=== PATIENT | female | born 1980 | race Caucasian/White ===

== ENCOUNTER 2023-06-18 13:57 | Outpatient (OUT) | payer OTHER, SELFPAY ==
--- NOTE | 2023-06-18 14:02 | MM_ITS ---
Patient Name: MARTIN ENRIQUE MR#: [id number] : 1980 Exam Date: 06/18/2023 Ordering Doctor: Non-Staff Physician RADIOLOGY REPORT PROCEDURE: MM TOMOSYNTHESIS SCREENING BI COMPARISON: MG MAMM AUGUSTO SCRN W CAD DIG, 12/16/2018. INDICATIONS: Screening Calculator Name NCI Breast Cancer Risk Assessment Tool 5 Year Breast Cancer Risk 0.50% Lifetime Breast Cancer Risk 6.50% Personal Breast Cancer No Personal Ovarian Cancer No Treatments None Family Cancers None LOCATION: [facility] BREAST COMPOSITION: Scattered areas fibroglandular density. FINDINGS: DIAGNOSTIC CATEGORY 1--NEGATIVE. NO CHANGE FROM COMPARISON ASSESSMENT. Scattered benign-appearing calcifications are present. Scattered benign-appearing lymph nodes are present. RIGHT BREAST: No significant suspicious finding. LEFT BREAST: No significant suspicious finding. RECOMMENDATIONS: ROUTINE MAMMOGRAM AND CLINICAL EVALUATION IN 12 MONTHS. PLEASE NOTE: A NORMAL MAMMOGRAM DOES NOT EXCLUDE THE POSSIBILITY OF BREAST CANCER. A CLINICALLY SUSPICIOUS PALPABLE LUMP SHOULD BE BIOPSIED. Dictated by: Russell Hernández MD on 06/21/2023 at 07:45 Approved by: Russell Hernández MD on 06/21/2023 at 07:49
== END 2023-06-18 13:58 | disposition home or self-care (01) ==
LOC: MAMMO 13:57
PROVIDERS: PCP Family Medicine
DX: Z12.31 Encounter for screening mammogram for malignant neoplasm of breast (principal)
CPT/HCPCS: 77063; 77067

== ENCOUNTER 2025-07-06 08:31 | Outpatient (OUT) | payer OTHER, SELFPAY ==
--- OUTSIDE RECORDS SUMMARY | 2009-08-01 19:00 | XMS_ITS | Continuity of Care Document ---
Author Organization [facility] Address [address] [place] [address] Phone Care Team Providers Care Hand Rigger Name Role Phone Paulina BANERJEEBenny Unavailable Unavailable Procedures Procedure Date FLU VACCINE, 3 YRS & >, IM Advance Directives Directive Yes / No Effective Date File Name No Information Encounters Encounter Description Practice Location Reason(s) For Visit Diagnoses Date Provider Providers Copied on Encounter [facility], [address], [place], [id number], [place] tel:[phone] [facility] No Information Paulina ROBERSON Benny. [address], [place], [id number], [place]. tel:[phone] Family History Family Member Type Diagnosis Age At Onset No Information Payers Payer name Insurance type Covered democrat ID Authoriza tion(s) No Information Social History Type Description Quantity Date Captured Comments Sex Female Smoking Status No Information Sexual Orientation Straight or heterosexual Chief Complaint And Reason For Visit No Information Reason For Referral Reason For Referral No Information History Of Present Illness Encounter Date Complaint History Of Prese nt Illness No Information Functional Status Date Functional Assessmen t No Information Instructions Date Instruction Additional Infor mation No Information Assessments Type Assessment Date No Information Patient Care Teams Name Effective Dates (start - stop) Status Members No Information
--- OUTSIDE RECORDS SUMMARY | 2025-07-03 18:00 | XMS_ITS | Encounter Summary ---
Author Organization [facility] Address [address] [facility] [place] [address] Care Team Providers Care Middleware Consultant Name Role Phone Mino Chahal DO Primary Care Provider [phone] Reason for Visit * Imaging (Routine) - ClosedSpecialtyDiagnoses / ProceduresReferred By Contact Referred To ContactRadiology Diagnoses Right wrist pain Procedures MR wrist right wo IV contrast Mino Chahal, DO [address] [place] [address] Phone: tel: fax: [facility] [address] [place] [address] Phone: tel: fax: Referral IDStatusReasonStart DateExpiration DateVisits RequestedVisits [id number] Encounter Details DateTypeDepartmentCare Team (Latest Contact Info)Ojxklmdpgaj14/23/2025 6:00 PM ESTAncillary Procedure [facility] [address] [place] [address] Right wrist pain Social History Tobacco UseTypesPacks/DayYears UsedDateSmoking Tobacco: NeverSmokeless Tobacco: Never Comments:Exposed heavily to second hand Alcohol UseStandard Drinks/WeekCommentsNot Currently0 (1 standard drink = 0.6 oz pure alcohol)Very rare maybe 3 times a [id number] Health LiteracyAnswerDate RecordedHow often do you need to have someone help you when you read instructions, pamphlets, or other written material from your doctor or pharmacy? Never02/13/2024Humiliation, Afraid, Rape, and Kick questionnaireAnswerDate RecordedWithin the last year, have you been afraid of your partner or ex-partner?No01/31/2023Within the last year, have you been humiliated or emotionally abused in other ways by your partner or ex-partner?No01/31/2023 Within the last year, have you been kicked, hit, slapped, or otherwise physically hurt by your partner or ex-partner?No01/31/2023Within the last year, have you been raped or forced to have any kind of sexual activity by your part ner or ex-partner?No01/31/2023Social Connection and Isolation PanelAnswerDate RecordedIn a typical week, how many times do you talk on the phone with family, friends, or neighbors?Three times a week02/13/2024How often do you get together with friends or relatives?Three times a week02/13/2024How often do you attend uatsdin or denominational services?Patient /04/2024o you belong to any clubs or organizations such as uatsdin groups, unions, fraternal or athletic angel ups, or school groups?No02/13/2024How often do you attend meetings of the clubs or organizations you belong to?Never02/13/2024re you , , , , never , or living with a partner?Never 02/13/2024UDIT-CAnswerDate RecordedQ1: How often do you have a drink containing alcohol?Monthly or less07/21/2024Q2: How many drinks containing alcohol do you have on a typical day when you are drinking?1 or Q3: How often do you have six or more drinks on one occasion?Never07/21/2024Overall Financial Resource Strain (CARDIA)AnswerDate RecordedHow hard is it for you to pay for the very basics like food, housing, medical care, and heating?Not very hard 02/13/2024HQ-2AnswerDate RecordedPatient Health Questionnaire-2 Score0 03/15/2025[facility] Occupational Health - Occupational Stress QuestionnaireAnswerDate RecordedDo you feel stress - tense, restless, nervous, or anxious, or unable to sleep at night because yourmind is troubled all the time - these days?Rather much02/13/2024Exercise Vital SignAnswerDate RecordedOn average, how many days per week do you engage in moderate to strenuous exercise (like a brisk walk)?0 days02/13/2024On average, how many minutes do you engage in exercise at this level?150+ min02/13/2024Hunger Vital SignAnswerDate Recorded Within the past 12 months, you worried that your food would run out before you got the money to buymore.Never true02/13/2024Within the past 12 months, the food you bought just didn't last and you didn't have money to get more.Never true 02/13/2024RAPARE - TransportationAnswerDate RecordedIn the past 12 months, has lack of transportation kept you from medical appointments or from getting medications?No02/13/2024In the past 12 months, has lack of transportation kept you from meetings, work, or from getting things needed for daily living?No 02/13/2024Housing Stability Vital SignAnswerDate RecordedIn the last 12 months, was there a time when you were not able to pay the mortgage or rent on time?No 01/31/2023In the last 12 months, how many places have you lived?In the last 12 months, was there a time when you did not have a steady place to sleep or slept in [facility] (including now)?No01/31/2023Housing Stability Vital SignAnswerDate RecordedIn the last 12 months, was there a time when you were not able to pay the mortgage or rent on time?No02/13/2024In the past 12 months, how many times have you moved where you were living?t any time in the past 12 months, were you homeless or living in a prison (including now)?No 4CommentsNoSex and Gender InformationValueDate RecordedSex Assigned at BirthNot on fileLegal HipKdyfxu26/15/2023 6:46 PM EDTGender Identity Not on fileSexual OrientationNot on filedocumented as of this encounter Plan of Treatment DateTypeDepartmentCare Team (Latest Contact Info)Filuwtogcjd23/16/2026 9:45 AM ESTOffice Visit [facility] [address] [place] [address] Cole Zayas, [address] [place] [address] documented as of this encounter Procedures Procedure NamePriorityDate/TimeAssociated DiagnosisCommentsMR WRIST RIGHT WO IV YPXICWTWSgfummi83/23/2025 6:47 PM EST Right wrist pain documented in this encounter Results * MR wrist right wo IV contrast (07/03/2025 6:47 PM EST)Anatomical Region LateralityModalityUpper Extremities, WristRightMagnetic ResonanceSpecimen (Source)Anatomical Location / LateralityCollection Method / VolumeCollection TimeReceived Time07/04/2025 10:24 AM EST Impressions 07/04/2025 10:28 AM EST Unremarkable MRI of the wrist. ELECTRONICALLY SIGNED BY: Jack Younger MD Narrative 07/04/2025 10:28 AM EST EXAM/TECHNIQUE: MR WRIST RIGHT WO IV CONTRAST HISTORY: Right wrist pain. No recent injury. Pain along the ulnar aspect. COMPARISON: Radiographs 06/14/2025. RESULT: BONE MARROW: There is no evidence of fracture, bone bruise or osteonecrosis. LIGAMENTS: The scapholunate ligament and lunotriquetral ligament appear to be intact. TRIANGULAR FIBROCARTILAGE COMPLEX (TFCC): The triangular fibrocartilage appears to be intact. CARTILAGE: The articular cartilage of the radiocarpal and intercarpal joints is preserved. TENDONS: The flexor and extensor tendons are intact. NERVES: The visualized portions of the median and ulnar nerves appear to be within normal limits. JOINT FLUID AND SYNOVIUM: There is a physiological quantity of joint fluid. ??No evidence of synovitis. OTHER: No other significant abnormality. Procedure Note Jack Younger MD - 07/04/2025 EXAM/TECHNIQUE: MR WRIST RIGHT WO IV CONTRAST HISTORY: Right wrist pain. No recent injury. Pain along the ulnaraspect. COMPARISON: Radiographs 06/14/2025. RESULT: BONE MARROW: There is no evidence of fracture, bone bruise orosteonecrosis. LIGAMENTS: The scapholunate ligament and lunotriquetral ligament appear january intact. TRIANGULAR FIBROCARTILAGE COMPLEX (TFCC): The triangular fibrocartilageappears to be intact. CARTILAGE: The articular cartilage of the radiocarpal and intercarpaljoints is preserved. TENDONS: The flexor and extensor tendons are intact. NERVES: The visualized portions of the median and ulnar nerves appear january within normal limits. JOINT FLUID AND SYNOVIUM: There is a physiological quantity of jointfluid. No evidence of synovitis. OTHER: No other significant abnormality. IMPRESSION: Unremarkable MRI of the wrist. ELECTRONICALLY SIGNED BY: Jack Younger MD Authorizing ProviderResult TypeResult StatusMatthew Elias Chahal [facility] MRI PROCEDURESFinal Result documented in this encounter Visit Diagnoses Diagnosis Right wrist pain Pain in joint, forearm documented in this encounter Care Teams Team MemberRelationshipSpecialtyStart DateEnd Date Mino Chahal DO [address] [facility] [address] [place] [address] PCP - GeneralFamily Medicine07/23/23documented as of this encounter
--- OUTSIDE RECORDS SUMMARY | 2025-07-06 08:39 | XMS_ITS | Encounter Summary ---
Author Organization [facility] Address [address] [place] [address] Care Team Providers Care Engagement Executive Name Role Phone Mino Chahal Primary Care Provider [phone]- [phone] Encounter Details DateTypeDepartmentCare Team (Latest Contact Info)Dhcuegqgizb22/23/2025Travel Social History Tobacco UseTypesPacks/DayYears UsedDateSmoking Tobacco: NeverSmokeless Tobacco: Never Comments:Exposed heavily to second hand Alcohol UseStandard Drinks/WeekCommentsNot Currently0 (1 standard drink = 0.6 oz pure alcohol)Very rare maybe 3 times a [id number] Health LiteracyAnswerDate RecordedHow often do you need [...] times a week02/13/2024How often do you attend moravian or alevism services?Patient hjkebdko65/04/2024o you belong to any clubs or organizations such as moravian groups, unions, fraternal or athletic angel ups, [...] very hard 02/13/2024HQ-2AnswerDate RecordedPatient Health Questionnaire-2 Score0 03/15/2025[facility] [place] of Occupational Health - Occupational Stress QuestionnaireAnswerDate [...] steady place to sleep or slept in ashelter (including now)?No01/31/2023Housing Stability Vital SignAnswerDate RecordedIn the last 12 months, was there a time when you were not able to pay the mortgage or rent on time?No02/13/2024In the past 12 months, how many times have you moved where you were living?t any time in the past 12 months, were you homeless or living in a senior care (including now)?No 02/13/2024CommentsNoSex and Gender InformationValueDate RecordedSex Assigned at BirthNot on fileLegal UdeJxskxz58/15/2023 6:46 PM EDTGender Identity Not on fileSexual OrientationNot on filedocumented as of this encounter Plan of Treatment DateTypeDepartmentCare Team (Latest Contact Info)Vwofwsjmkmy14/16/2026 9:45 AM ESTOffice Visit [facility] [place] [facility] [address] [place] [address] Cole Zayas DO [address] [place] [address] documented as of this encounter Visit Diagnoses Not on filedocumented in this encounter Care Teams Team MemberRelationshipSpecialtyStart DateEnd Date Mino Chahal DO [address] [place] [address] PCP - GeneralFancly Medicine07/23/23documented as of this encounter
--- OUTSIDE RECORDS SUMMARY | 2025-07-06 08:39 | XMS_ITS | Clinical Summary ---
Author Organization [facility] Address [address] [place] [address] Care Team Providers Care Deputy Director Of Nursing Name Role Phone Mino Chahal DO Primary Care Provider [phone] Allergies No known active allergies Medications MedicationSigDispense QuantityRefillsLast FilledStart DateEnd DateStatus Probiotic Product (PROBIO DEFENSE PO) Active levocetirizine (Xyzal) 5 MG tablet 1 (one) time each day at the same time.Active cetirizine (ZyrTEC ALLERGY) 10 MG tablet Active omeprazole (PriLOSEC) [address] capsule Indications:HeartburnTake 1 capsule (40 mg) by mouth in the morning. Take before meals. Do not crush or chew.. 30 capsule 1104Active Cobalamin Combinations (B-12) 100-5000 MCG sublingual tablet 4Active valACYclovir (Valtrex) 1 g tablet Indications:H/O cold soresTake 1 tablet daily by mouth if needed (flare ups) 60 tablet 5Active montelukast (Singulair) 10 MG tablet Indications:Cough, unspecified typeTAKE 1 TABLET BY MOUTH DAILY 90 tablet 5Active ferrous sulfate 325 (65 Fe) MG EC tablet Take 325 mg by mouth in the morning and 325 mg at noon and 325 mg in the evening. Take with meals. Do not crush, chew, or split.Active METHYL B12 Active nystatin (Mycostatin) cream Apply topically in the morning and before bedtime.Active Magnesium Glycinate 100 MG capsule Take 350 mg by mouth in the morning and 350 mg before bedtime.Active Xylitol 500 MG disk Administer into affected nostril(s)Active Tea D Gridley 1000 MG capsule Take by mouthActive biotin 3 MG tablet Take by mouthActive rizatriptan GUIDE VISITOR (Maxalt-GUIDE VISITOR) 10 MG disintegrating tablet Indications:Other migraine without status migrainosus, not intractableTake 1 tablet (10 mg) by mouth 1 (one) time if needed for migraine May repeat in 2 hours if unresolved. Do not exceed 30 mg in 24 hours. 9 tablet 3095Active tiZANidine (Zanaflex) 2 MG tablet Indications:CostochondritisTake 1 tablet (2 mg) by mouth at bedtime 30 tablet 5Active norgestimate-ethinyl estradiol (Previfem) 0.25-35 MG-MCG tablet Indications:General counseling and advice on contraceptive managementTake 1 tablet by mouth Daily 112 tablet 111506Active Active Problems ProblemNoted DateDiagnosed DateIrritable bowel vldwkcg0302/01/2023 Mcvpdesiojsdmrdnnhsd44/28/2021rimary rxliainw10/15/2019Chronic fatigue 02/14/2019GERD (gastroesophageal reflux disease)12/14/20186740Zqadzetqa07/05/2019 Overview (02/01/2023): Last Assessment & Plan: Assessment: History of Migraines stable on OTC medications Fibrocystic breast dewcxek0406/15/2016 Resolved Problems ProblemNoted DateDiagnosed DateResolved ZwmcWsgdgtjfhdywn55/31/202408/11/2023 Rcpmjl26/11/20231622Wypmyhqog48alculus of gallbladder with acute on chronic cholecystitis without nhmpnakehoy98/07/202308/ight upper quadrant pain/0188Udgeofk72/24/202309/Other insomnia Vitamin D zqfxoztbgh38ain in left hip 04/26/931543/ Encounters DateTypeDepartmentCare GpevZnjbubgtbuk54/23/2025 6:00 PM ESTAncillary Procedure [facility] [address] [place] [phone] Right wrist pain07/03/20253396Dwdjca54/22/9807Ezkhnt84/05/2025Telephone [facility] [address] [place] [phone] Pam Luna MA 06/14/2025 10:00 AM ESTAncillary Procedure [facility] [address] [place] [phone] Right wrist pain06/14/2025Results Follow-Up [facility] [address] [place] [phone] Mino Chahal, DO XR wrist 3+ views right06/14/20255053Jdaxsq61/05/2025[facility] [address] [place] [phone] Cole Zayas, DO General counseling and advice on contraceptive yxnqofuyfa99/26/2025Results Follow-Up [facility] [address] [place] [phone] Mino Chahal, DO Cologuard?? colon cancer gidryeifl10/03/2025Refill [facility] [address] [place] [address] Mino Chahal, DO Costochondritisfrom Last 3 Months Immunizations ImmunizationAdministration DatesNext DueHep B, adult07/14/2002,01/18/2002, 12/09/2001Influenza, Injectable, MDCK, preservative free04/25/2019Influenza, injectable, MDCK, crqynkzubbev78/15/2019Influenza, injectable, quadrivalent 06/03/2020Influenza, injectable, quadrivalent, preservative free03/04/2018Pfizer Purple Cap SARS-CoV-2 Yuotrmmvcug45/12/2021,08/22/2020,08/02/2020,08/01/2020Td (adult), xneijfaslvw42/31/6223Kxjl45/24/2018 Family History Medical HistoryRelationNameCommentsAlcohol abuseFathermany in familyCancerFather many in familyDepressionFathermany in familyHeart diseaseFather's BrotherMany in familyHypertensionFather's BrotherMany in familyAlcohol abuseMotherMany in familyCancerMotherMany in familyColon cancerMotherMany in familyDepressionMother Many in familyLung cancerMotherMany in familyMental illnessMotherMany in family Drug abuseMother's BrotherUncle and his kidsBreast cancerPaternal Grandmother HelenRelationNameStatusCommentsFathermany in familyAliveFather's BrotherMany in familyMotherMany in familyDeceasedMother's BrotherUncle and his kidsPaternal GrandmotherHelen Social History Tobacco UseTypesPacks/DayYears UsedDateSmoking Tobacco: NeverSmokeless Tobacco: Never Tobacco Cessation:Counseling Given: No Comments:Exposed heavily to second hand Alcohol UseStandard Drinks/WeekCommentsNot Currently0 (1 standard drink = 0.6 oz pure alcohol)Very rare maybe 3 times a rtaeE9027 Health LiteracyAnswerDate RecordedHow often do you need [...] times a week02/13/2024How often do you attend pentecostal or congregation services?Patient xvditasw96/04/2024o you belong to any clubs or organizations such as pentecostal groups, unions, fraAirXP or athletic angel ups, or school groups?No02/13/2024How [...] very hard 02/13/2024HQ-2AnswerDate RecordedPatient Health Questionnaire-2 Score0 03/15/2025[facility] [place] [facility] - Occupational Stress QuestionnaireAnswerDate [...] steady place to sleep or slept in [facility] (including now)?No01/31/2023Housing Stability Vital SignAnswerDate RecordedIn the last 12 months, was there a time when you were not able to pay the mortgage or rent on time?No02/13/2024In the past 12 months, how many times have you moved where you were living?t any time in the past 12 months, were you homeless or living in a ch[facility] (including now)?No 02/13/2024CommentsNoSex and Gender InformationValueDate RecordedSex Assigned at BirthNot on fileLegal UnqMpthrc76/15/2023 6:46 PM EDTGender Identity Not on fileSexual OrientationNot on file Last Filed Vital Signs Vital SignReadingTime TakenCommentsBlood Rggdnaac092/6809 8:17 AM EDT Sybqu452603/15/2025 8:17 AM REJHgifrrfbaez73.1 ??C (96.9 ??F)03/15/2025 8:17 AM EDTRespiratory Rate--Oxygen Xctwmdikeh88%03/15/2025 8:17 AM EDTInhaled Oxygen Concentration--Wflion06.1 kg (154 lb 9.6 oz)03/15/2025 8:17 AM GEYGtrodd300.1 cm (5' 5 )03/15/2025 8:17 AM EDTBody Mass Index25.7303/15/2025 8:17 AM EDT Plan of Treatment DateTypeDepartmentCare Team (Latest Contact Info)Uhouehqgccg59/16/2026 9:45 AM ESTOffice Visit [facility] [address] [place] [phone] Coel Zayas DO [address] [place] [address] Health MaintenanceDue DateLast DoneCommentsCT Pwynmsacwqgp1979Colonoscopy 1979FIT1979FOBT1979 6516Cqgdbtevznuzp81/07/5335Afwdxmdqz27/08/2024 06/18/2023, 12/19/2018, 12/19/2018Influenza Vaccine (#1)5108/03/2019, 04/25/2019, 04/25/2019, Additional history existsPap Smear04/09//, 04/24/2022olorectal Cancer Jqueanjbu56/18/2028FIT-DNA Cervical Cancer Oqdaujaai20/10/2030HPV/Yzyiye33, 04/09/2023, 03/05/2021, Additional history existsPneumococcal Vaccine: Pediatrics (0 to 5 Years) and At-Risk Patients (6 to 64 Years)Aged OutNo longer eligible based on patient's age to complete this topic Procedures Procedure NamePriorityDate/TimeAssociated DiagnosisCommentsMR WRIST RIGHT WO IV OQALWNQAErkscvr66/23/2025 6:47 PM EST Right wrist pain XR WRIST 3+ VIEWS GUMTYBkhurxb34/04/2025 10:15 AM EST Right wrist pain LAB COLOGUARD?? COLON CANCER IBDVIIAtpehpv55/18/2025 7:23 AM EDT Colon cancer screening IGP, APT HPV,RFX 16/18,84Zwszdrf88/10/2025 12:00 AM EST Screening for malignant neoplasm of cervix BI MAMMOGRAM DIAGNOSTIC PFFDJOJPHMehegmg50/08/2023 9:33 AM ESTTHINPREP TIS PAP AND HPV MRNA E6/E7 WITH REFLEX TO HPV 16,18/11Yvhkhvl72/29/2023 9:57 AM EDT Encounter for gynecological examination without abnormal finding Screening for malignant neoplasm of cervix from Last 3 Months or Most Recently Relevant to Health Maintenance Results * MR wrist right wo IV [...] BY: Jack Younger MD Authorizing ProviderResult TypeResult StatusGlens Falls Hospitalbernabe Chahal [facility] MRI PROCEDURESFinal Result * XR wrist 3+ views right (06/14/2025 10:15 AM EST)Anatomical RegionLaterality ModalityUpper Extremities, WristRightRadiographic ImagingSpecimen (Source) Anatomical Location / LateralityCollection Method / VolumeCollection Time Received Time06/14/2025 2:06 PM EST Impressions 06/14/2025 2:06 PM EST No acute osseous abnormality. ELECTRONICALLY SIGNED BY: Saul Doty DO Narrative 06/14/2025 2:06 PM EST EXAM: XR WRIST 3+ VIEWS RIGHT HISTORY: Wrist pain COMPARISON: None available TECHNIQUE: 4 views of the wrist obtained. FINDINGS: No acute fracture or dislocation. ??Carpal and radiocarpal alignment is satisfactory. Soft tissues are within normal limits. Procedure Note Saul Doty DO - 06/14/2025 EXAM: XR WRIST 3+ VIEWS RIGHT HISTORY: Wrist pain COMPARISON: None available TECHNIQUE: 4 views of the wrist obtained. FINDINGS: No acute fracture or dislocation. Carpal and radiocarpal alignment is satisfactory. Soft tissues are within normal limits. IMPRESSION: No acute osseous abnormality. ELECTRONICALLY SIGNED BY: Saul Doty DO Authorizing ProviderResult TypeResult StatusNmttw C Petznick [facility] XR PROCEDURESFinal Result * Cologuard?? colon cancer screening (04/28/2025 7:23 AM EDT)ComponentValueRef RangeTest MethodAnalysis TimePerformed AtPathologist SignatureNONINV COLON CA DNA+OCC BLD SCRN STL-RHVDddgyfujXigavujv44/24/2025 9:24 AM [place] (CLIA #:[id number])Comment: The Cologuard (TM) test was performed on this specimen. NEGATIVE TEST RESULT. A negative Cologuard result indicates a low likelihood that a colorectal cancer (CRC) or advanced adenoma (adenomatous polyps with more advanced pre-malignant features) is present. The chance that a person with a negative Cologuard test has a colorectal cancer is less than 1 in 1500 (negative predictive value >99.9%) or has an advanced adenoma is less than 5.3% (negative predictive value 94.7%). These data are based on a prospective cross-sectional study of 10,000 individuals at average risk for colorectal cancer who were screened with both Cologuard and colonoscopy. (Mejia Johnston al, N Engl J Med 2014;370(14):7754-8886) The normal value (reference range) for this assay is negative. COLOGUARD RE-SCREENING RECOMMENDATION: Periodic colorectal cancer screening is an important part ofpreventive healthcare for asymptomatic individuals at average risk for colorectal cancer. Followinga negative Cologuard result, the [place] [employer] Society and U.S. Multi-Society Task Force screening guidelines recommend a Cologuard re-screening interval of 3 years. References: [place] [employer] Guideline for Colorectal Cancer Screening: https://www.cancer.or g/cancer/ciiyc-flxibr-dbigch/siehyzbdh-axzboydoj-krshlsg/acs-recommendations.htm shy; Murray CONWAY, Krys GARCIA, Jina RubioK, Colorectal Cancer Screening: Recommendations for Physicians and Patients from the U.S. Multi-Society Task Force on Colorectal Cancer Screening , Am J Gastroenterology 2017; 112:9821-0230. TEST DESCRIPTION: Composite algorithmic analysis of stool DNA-biomarkers with hemoglobin immunoassay. ?? Quantitative values of individual biomarkers are not reportable and are not associated with individual biomarker result reference ranges. Cologuard is intended for colorectal cancer screening ofadults of either sex, 45 years or older, who are at average-risk for colorectal cancer (CRC). Cologuard has been approved for use by the U.S. FDA. The performance of Cologuard was established in a cross sectional study of average-risk adults aged 50-84. Cologuard performance in patients ages 45 to 49 years was estimated by sub-group analysis of near-age groups. Colonoscopies performed for a positive result may find as the most clinically significant lesion: colorectal cancer [4.0%], advanced adenoma (including sessile serrated polyps greater than or equal to 1cm diameter) [20%] or non- advanced adenoma [31%]; or no colorectal neoplasia [45%]. These estimates are derived from a prospective cross-sectional screening study of 10,000 individuals at average risk for colorectal cancer who were screened with both Cologuard and colonoscopy. (Mejia Johnston al, N Engl J Med 2014;370(14):3196-1746.) Cologuard may produce a false negative or false positive result (no colorectal cancer or precancerous polyp present at colonoscopy follow up). A negative Cologuard test result does not guarantee the absence of CRC or advanced adenoma (pre-cancer). The current Cologuard screening interval is every 3 years. ([place] [employer] Society and U.S. Multi-Society Task Force). Cologuard performance data in a 10,000 patient pivotal study using colonoscopy as the reference method can be accessed at the following location: www.[employer]/results. Additional description of the Cologuard test process, warnings and precautions can be found at www.Loosecubesoguard.com. Specimen (Source)Anatomical Location / LateralityCollection Method / Volume Collection TimeReceived TimeStool specimen (specimen)04/28/2025 7:23 AM EDT 04/29/2025 11:27 PM EDT Narrative Authorizing ProviderResult TypeResult StatusMatthew Elias Chahal [facility] ORDERABLESFinal ResultPerforming OrganizationAddressCity/State/ZIP CodePhone Number .[employer] (CLIA #:[id number]) [address] [place] [address], [employer] (CLIA #:[id number]) [address] [place] [address] * (ABNORMAL) IGP, APT HPV,RFX 16/18,45 (07/21/2024 12:00 AM EST)ComponentValue Ref RangeTest MethodAnalysis TimePerformed AtPathologist SignatureDiagnosis: Comment(A)[facility]ABCORPComment: EPITHELIAL CELL ABNORMALITY. LOW GRADE SQUAMOUS INTRAEPITHELIAL LESION (LSIL). Specimen Adequacy:CommentLABCORPComment: Satisfactory for evaluation. ??Endocervical and/or squamous metaplastic cells (endocervical component) are present. Clinician Provided ICD10:CommentLABCORPComment:Z12.4Performed By:CommentLABCORP Comment:Ankush Austin, It Security Consulting Director (ASCP)Electronically Signed By: CommentLABCORPComment:Georgina Hall MD, PathologistCyto Comments.[facility] Pathologist Provided ICD10:CommentLABCORPComment:R87.612Note:CommentLABCORP Comment: The Pap smear is a screening test designed to aid in the detection of premalignant and malignant conditions of the uterine cervix. ??It is not a diagnostic procedure and should not be used as the sole means of detecting cervical cancer. ??Both false-positive and false-negative reports do occur. Test Methodology:CommentLABCORPComment: This liquid based ThinPrep(R) pap test was screened with the use of an image guided system. HPV AptimaNegativeNegativeLABCORPComment: This nucleic acid amplification test detects fourteen high-risk HPV types (16,18,31,33,35,39,45,51,52,56,58,59,66,68) without differentiation. Specimen (Source)Anatomical Location / LateralityCollection Method / Volume Collection TimeReceived MxbdTkzd37/ Narrative [facility] - 07/25/2024 3:06 PM EST Performed at: 01 - [address] ??[id number] Table Worker: Soraya Araujo MD, Phone: ??[phone] Performed at: ??02 - [address] ??[id number] Table Worker: Soraya Araujo MD, Phone: ??[phone] Specimen Comment: [id number] Specimen Comment: No. of containers..01 ThinPrep Vial Authorizing ProviderResult TypeResult StatusWillelieser Bush [facility] BLOOD ORDERABLESFinal ResultPerforming OrganizationAddressCity/State/ZIP CodePhone Number [facility] * Bilateral diagnostic mammogram (06/18/2023 9:33 AM EST)Anatomical Region LateralityModalityBreastBilateralMammography Narrative Authorizing ProviderResult TypeResult StatusUnknown Practice AIMG BI PROCEDURES Final Result * THINPREP TIS PAP AND HPV MRNA E6/E7 WITH REFLEX TO HPV 16,18/45 (04/09/2023 9:57 AM EDT)ComponentValueRef RangeTest MethodAnalysis TimePerformed At Pathologist SignatureCLINICAL INFORMATIONQUESTComment:None givenLMPQUEST Comment:02/12/23PREV. PAPQUESTComment:NEGPREV. BXQUESTComment:NONE GIVENSOURCE QUESTComment:None givenSTATEMENT OF ADEQUACYQUESTComment: Satisfactory for evaluation. Endocervical/transformation zone component present. INTERPRETATION/RESULTQUESTComment: Cytology Results: Negative for intraepithelial lesion or malignancy. Reactive cellular changes associated with repair COMMENTQUESTComment: This Pap test has been evaluated with computer assisted technology. CYTOTECHNOLOGISTQUESTComment: CMB, CT(ASCP) CT Screening Location: [facility] [place], [address] [place] [address] PATHOLOGISTQUESTComment: Stan Jones MD Board Certified in Anatomic Pathology and Cytopathology (electronic signature) For questions regarding this report call Anatomic Pathology at [phone] Stan Jones MD, Investment Accounting Clerk [facility] [place], [place] (ALWAYS MESSAGE)QUESTComment: EXPLANATORY NOTE: The Pap is a screening test for cervical cancer. It is not a diagnostic test and is subject to false negative and false positive results. It is most reliable when a satisfactory sample, regularly obtained, is submitted with relevant clinical findings and history, and when the Pap result is evaluated along with historic and current clinical information. HPV MRNA E6/E7Not DetectedNot DetectedQUESTComment: Methodology: Obstetrician And Gynaecologist-Mediated Amplification This assay detects E6/E7 viral messenger RNA (mRNA) from 14 high-risk HPV types (16,18,31,33,35,39,45,51,52,56,58,59,66,68). Cervical sources are required for HPV testing. If a vaginal source from a patient who has had a total hysterectomy with removal of cervix was submitted, please contact the testing laboratory for alternative testing options. For additional information, please refer to http://education.[employer]/faq/CXA626m0 (This link if provided for information/ educational purposes only.) Specimen (Source)Anatomical Location / LateralityCollection Method / Volume Collection TimeReceived OvisImxi70/29/2023 9:57 AM EDT04/10/2023 4:04 AM EDT Narrative Resulting Agency Comment Performing Organization Information ?Site ID: [id number] ?Name: [facility] ?Address: [address] [place] [address], [address] [place] [id number] ?Director: Bruno Griffin MD ?Site ID: [id number] ?Name: [facility] ?Address: [address] [place] [address], [facility] [place] [address] ?Director: Payton Augustin Authorizing ProviderResult TypeResult StatusWilliazeb Zayas [facility] ORDERABLESFinal ResultPerforming OrganizationAddressCity/State/ZIP CodePhone Number [facility] from Last 3 Months or Most Recently Relevant to Health Maintenance Insurance Care Teams Team MemberRelationshipSpecialtyStart DateEnd Date Mino Chahal DO [address] [place] [address] PCP - GeneralFamily Medicine07/23/23
--- OUTSIDE RECORDS SUMMARY | 2025-07-06 08:39 | XMS_ITS | Clinical Summary ---
Author Organization [facility] Address [address] [place] [id number] Care Team Providers Care Laboratory Apparatus Glass Grinder Name Role Phone Jack Sheridan Primary Care Provider + [phone] Allergies No known active allergies Medications MedicationSigDispense QuantityRefillsLast FilledStart DateEnd DateStatus NORGESTIMATE-ETHINYL ESTRADIOL (PREVIFEM ORAL) Take by mouth.Active ASPIRIN/ACETAMINOPHEN/CAFFEINE (EXCEDRIN MIGRAINE ORAL) Take by mouth.Active omeprazole (PRILOSEC) 10 mg capsule Take 10 mg by mouth once daily.Active diphenhydramine HCl (ALLERGY MEDICATION ORAL) Active meloxicam (MOBIC) 15 mg tablet Take 1 tablet by mouth once daily. 30 tablet Active Active Problems ProblemNoted DateDiagnosed DateGERD (gastroesophageal reflux disease)12/14/2018 Rnfxvinai18/05/2019 Assessment & Plan (12/14/2018 1:49 PM EDT): Assessment: History of Migraines stable on OTC medications Pain in left hip11/04/2018 Family History Medical HistoryRelationCommentslung CAMotherRelationStatusCommentsMotherDeceased Social History Tobacco UseTypesPacks/DayYears UsedDateSmoking Tobacco: NeverSmokeless Tobacco: NeverAlcohol UseStandard Drinks/WeekCommentsYes0 (1 standard drink = 0.6 oz pure alcohol)very rare.Area Deprivation IndexAnswerDate RecordedNational Score (1- 100), lower number is lower riskNot on file06/19/2020State Score (1-10), lower number is lower riskNot on file06/19/2020Data from: https://www.neighborhoodatlas.[facility].edu/. Last address used for calculationNot on file06/19/2020CommentsNoSex and Gender Information ValueDate RecordedSex Assigned at TfinzQcchot25/02/2019 7:35 PM EDTLegal Sex Qcadfr5606/19/2013 3:35 PM ESTGender PspdoggdZvteum42/02/2019 7:35 PM EDTSexual FbvpmbabpbkUyjribhw32/02/2019 7:35 PM EDT Last Filed Vital Signs Vital SignReadingTime TakenCommentsBlood Akywxtik142/72012/29/2018 3:00 PM EDT Stcdj228012/29/2018 3:00 PM AMMIbrmqknwinl76.3 ??C (97.4 ??F)12/29/2018 1:07 PM EDTRespiratory Opnd401212/29/2018 1:30 PM EDTOxygen Zaitvogftk30%12/29/2018 3:00 PM EDTInhaled Oxygen Concentration--Truuhz97.2 kg (135 lb)12/14/2018 1:34 PM EDT Elhzng159.5 cm (5' 2 )12/14/2018 1:34 PM EDTBody Mass Index24.6906 1:34 PM EDT Plan of Treatment Health MaintenanceDue DateLast DoneCommentsAnxiety Kryegcvuy37/07/1997Depression Vvnuwiplc06/07/1997Cervical Cancer Rfphcbfzp91/07/2000Mammogram Screening 2019CT Jnxqrkscnhul78/07/2024ologuard (FIT-DNA)2024olonoscopy 2024olorectal Cancer Lpyafmuol18/07/2024iabetes Wfubsynyz37/07/2024Fecal Occult Blood2024Lipid Alktdabju38/07/8389Axithzjvdutqr50/07/2024ovid-19 Vaccine ( season)2025Influenza Vaccine (#1)2025 04/25/2019, 03/04/2018DTaP,Tdap,Td Vaccine (2 - Td or Tdap)8003/04/2018, 12/09/2001Hepatitis B EriojnmVrgeeppay49/03/2003, 01/18/2002, 12/09/2001HIV RmwiqzsllUlhuyskxl88/20/2019, 07/31/2014Hepatitis C ScreeningCompleted 12/29/2018, 07/31/2014 Medical Devices ImplantedTypeAreaManufacturerDevice IdentifierShelf Expiration DateModel / Serial / LotAnchor Q-Fix 1.8mm Suture - [id number] Implanted:12/29/2018 at [facility] (Quantity not on file)Suture [place] Left: Bone - [facility] NEPHEW [id number] / / [id number] Q-Fix 1.8mm Suture - [id number] Implanted:12/29/2018 at [facility] (Quantity not on file)Suture [place] Left: Bone - [facility]PH [id number] / / [id number] Q-Fix 1.8mm Suture - [id number] Implanted:12/29/2018 at [facility] (Quantity not on file)Suture [place] Left: Bone - [facility] Center[facility] NEP[facility]W [id number] / / [id number] Procedures Procedure NamePriorityDate/TimeAssociated DiagnosisCommentsOCCUPATIONAL HEALTH EXPOSURE PROFILE/CCUKFWZSAMR09/20/2019 12:33 PM EDT Employee exposure to blood from Last 3 Months or Most Recently Relevant to Health Maintenance Results * OCCUPATIONAL HEALTH EXPOSURE PROFILE/PATIENT (12/29/2018 12:33 PM EDT) ComponentValueRef RangeTest MethodAnalysis TimePerformed AtPathologist OuxquxipcWXlEiZaswbktsRzvirhih15/20/2019 10:35 PM EDTCleveland Clinic LaboratoriesHIV 12 Combo (Ag/Ab)Non ReactiveNon Ochoozda43/20/2019 10:35 PM EDTCleveland Clinic LaboratoriesHIV 1/2 Ab ConfirmatoryTest Not Indicated 12/29/2018 10:35 PM EDTCleveland Clinic LaboratoriesHIV InterpretationNegative 12/29/2018 10:35 PM EDTCleveland Clinic LaboratoriesComment: No evidence of HIV-1 or HIV-2 infection. Should recent infection be suspected, repeat testing may be considered 2-3 weeks after this draw. HIV Information: [place] Rev. Code 3701.243(E): This information has been disclosed to you from confidential records protected from disclosure by state law. ??You shall make no further disclosure of this information without the specific, written, and informed release of the individual to whom it pertains or as otherwise permitted by state law. A general authorization for the release of medical or other information is not sufficient for the purpose of the release of HIV test results or diagnoses. Hep C Antibody XDBzhqxrkaBgrowsgb83/20/2019 10:35 PM EDTCUC Health LaboratoriesHIV, Rapid ([facility])GlloecryViicblvm33/20/2019 4:12 PM EDT [facility] TownshipComment: Negative for both HIV1 and/or HIV2 antibodies and HIV1 p24 antigen. Called to and read back by: ALAINA [id number] 12/29/2018 Roger SALCEDO Performed via the Alere Determine HIV 1/2 Ag/Ab Combo point of care test. Instrumented antigen/antibody tests are preferred over the Alere Determine point of care test because the former are more sensitive for HIV during acute infection. (Reference: CDC Technical Update, Published 04/14/2017) HIV Information: [place] Rev. Code 3701.243(E): This information has been disclosed to you from confidential records protected from disclosure by state law. ??You shall make no further disclosure of this information without the specific, written, and informed release of the individual to whom it pertains or as otherwise permitted by state law. A general authorization for the release of medical or other information is not sufficient for the purpose of the release of HIV test results or diagnoses. Specimen (Source)Anatomical Location / LateralityCollection Method / Volume Collection TimeReceived TimeBlood specimen (specimen)BLOOD SPECIMEN / Unknown 12/29/2018 12:33 PM EDT12/29/2018 3:21 PM EDT Narrative Authorizing ProviderResult TypeResult StatusPretty Lewis SCIENCE MANAGER.CNPLABORATORY Final ResultPerforming OrganizationAddressCity/State/ZIP CodePhone Number [facility] [address] [place] [address] [facility] [address] [place] [address] from Last 3 Months or Most Recently Relevant to Health Maintenance Care Teams Team MemberRelationshipSpecialtyStart DateEnd Date Jack Sheridan DO [facility]06/19/13
--- OUTSIDE RECORDS SUMMARY | 2025-07-06 08:39 | XMS_ITS | Encounter Summary ---
Author Organization [facility] Address [address] [place] [address] Care Team Providers Care Barrel Bridge Assembler Name Role Phone Mino Chahal Primary Care Provider [phone] Encounter Details DateTypeDepartmentCare Team (Latest Contact Info)Limvafqlwxz83/22/2025Travel Social History Tobacco UseTypesPacks/DayYears UsedDateSmoking Tobacco: NeverSmokeless Tobacco: Never Comments:Exposed heavily to second hand Alcohol UseStandard Drinks/WeekCommentsNot Currently0 (1 standard drink = 0.6 oz pure alcohol)Very rare maybe 3 times a [id number] Health LiteracyAnswerDate RecordedHow often do you need [...] times a week02/13/2024How often do you attend religious or amish services?Patient jmrplmxe23/04/2024o you belong to any clubs or organizations such as religious groups, unions, fraternal or athletic angel ups, [...] very hard 02/13/2024HQ-2AnswerDate RecordedPatient Health Questionnaire-2 Score0 03/15/2025[facility] [place] [facility] - Occupational Stress QuestionnaireAnswerDate [...] were you homeless or living in a residential (including now)?No 02/13/2024CommentsNoSex and Gender InformationValueDate RecordedSex Assigned at BirthNot on fileLegal ZdqDgegum88/15/2023 6:46 PM EDTGender Identity Not on fileSexual OrientationNot on filedocumented as of this encounter Plan of Treatment DateTypeDepartmentCare Team (Latest Contact Info)Aqkuqxgaslz29/16/2026 9:45 AM ESTOffice Visit [facility] [place] [facility] [address] [place] [address] Cole Zayas DO [address] [place] [address] documented as of this encounter Visit Diagnoses Not on filedocumented in this encounter Care Teams Team MemberRelationshipSpecialtyStart DateEnd Date Mino Chahal DO [address] [place] [address] PCP - GeneralFasdly Medicine07/23/23documented as of this encounter
--- NOTE | 2025-07-06 09:00 | MM_ITS ---
Patient Name: MARTIN ENRIQUE MR#: [id number] : 1980 Exam Date: 07/06/2025 Ordering Doctor: DR DANGELO ENCARNACION RADIOLOGY REPORT PROCEDURE: MM TOMOSYNTHESIS SCREENING BI COMPARISON: MM TOMOSYNTHESIS SCREENING BI, 06/18/2023. MG MAMM AUGUSTO SCRN W CAD DIG, 12/16/2018. INDICATIONS: Screening Calculator Name NCI Breast Cancer Risk Assessment Tool 5 Year Breast Cancer Risk 0.60% Lifetime Breast Cancer Risk 6.30% Personal Breast Cancer No Personal Ovarian Cancer No Treatments None Family Cancers Grandmother-paternal with breast cancer at age ~60. LOCATION: [facility] BREAST COMPOSITION: There are scattered areas of fibroglandular density. FINDINGS: DIAGNOSTIC CATEGORY 1--NEGATIVE. RIGHT BREAST: No significant suspicious finding. LEFT BREAST: No significant suspicious finding. RECOMMENDATIONS: ROUTINE MAMMOGRAM AND CLINICAL EVALUATION IN 12 MONTHS. Dictated by: Diego Ortiz MD on 07/06/2025 at 12:29 Approved by: Diego Ortiz MD on 07/06/2025 at 12:33
== END 2025-07-06 08:32 | disposition home or self-care (01) ==
LOC: MAMMO 08:36
PROVIDERS: PCP Family Medicine; Visit Provider Obstetrics & Gynecology
DX: Z12.31 Encounter for screening mammogram for malignant neoplasm of breast (principal); Z80.3 Family history of malignant neoplasm of breast
CPT/HCPCS: 77063; 77067